=== PATIENT | female | born 1995 | race Caucasian/White ===

== ENCOUNTER 2020-07-02 13:30 | Outpatient (REF) | payer OTHER, SELFPAY ==
[2020-07-02 13:59] LABS: MANUAL DIFF FLAG NO
[2020-07-02 14:02] LABS: Basophils Absolute Auto 0.1 X10*3/uL (0.0-0.2); Basophils Percent Auto 0.7 % (0-2); Eosinophils Absolute Auto 0.1 X10*3/uL (0.0-0.4); Eosinophils Percent Auto 0.8 % (0-4); Hematocrit 38.6 % (37-47); Hemoglobin 12.6 g/dl (12.0-16.0); Imm Gran Abs Auto 0.02 X10*3/uL (0.00-0.03); Imm Gran Pct Auto 0.2 % (0.0-0.4); Lymphocytes Absolute Auto 4.7 X10*3/uL (1.2-4.9); Lymphocytes Percent Auto 48.4 % (20-40); Mean Corpuscular HGB Conc 32.6 g/dl (31.0-35.0); Mean Corpuscular Hemoglobin 25.4 pg (27.0-33.0); Mean Corpuscular Volume 77.7 fL (80-98); Mean Platelet Volume 9.9 fL (9.4-12.3); Monocytes Absolute Auto 0.6 X10*3/uL (0.1-1.2); Monocytes Percent Auto 6.1 % (2-11); Neutrophils Absolute Auto 4.3 X10*3/uL (2.0-8.3); Neutrophils Percent Auto 43.8 % (45-73); Platelet Count 401 X10*3/uL (160-400); Red Blood Count 4.97 X10*6/uL (4.20-5.50); Red Cell Distribution Width 13.1 % (11.0-16.0); White Blood Count 9.7 X10*3/uL (4.8-10.8)
[2020-07-02 14:33] LABS: Alanine Aminotransferase 17 U/L (0-31); Albumin Level 4.3 g/dL (3.5-5.0); Alkaline Phosphatase 64 U/L (39-117); Anion Gap 12 (12-20); Aspartate Amino Transferase 13 U/L (5-31); Bilirubin Total 0.5 mg/dL (0.0-1.0); Blood Urea Nitrogen 11 mg/dL (9-16); Calcium 9.2 mg/dL (8.4-10.2); Carbon Dioxide 26 mmol/L (22-29); Chloride 107 mmol/L (96-108); Cholesterol 136 mg/dL; Estimated Glomerular Filt Rate > 60; Glucose Fasting 96 mg/dL (60-99); HDL Cholesterol 36 mg/dL; LDL Cholesterol Calculated 82 mg/dl; Potassium 3.8 mmol/L (3.3-5.1); Sodium 141 mmol/L (135-145); Total Protein 7.5 g/dL (6.5-8.0); Triglycerides 91 mg/dL
[2020-07-02 14:57] LABS: TSH reflex Free T4 3.96 uIU/mL (0.32-4.0)
== END 2020-07-02 13:31 | disposition home or self-care (01) ==
LOC: HO.HMGCLDS 13:30
PROVIDERS: PCP Internal Medicine; Visit Provider Internal Medicine
DX: Z00.01 Encounter for general adult medical examination with abnormal findings (principal)
CPT/HCPCS: 36415; 80053; 80061; 82306; 84443; 85025

== ENCOUNTER 2021-06-04 13:00 | Outpatient (RCR) | payer OTHER, SELFPAY ==
--- NOTE | 2021-04-21 07:20 | MHC.PT.EP ---
[facility] [place] Office [place] Office [place] Office [address] Jeremiah Jerez [address] [phone] F: [phone] F: [phone] F: [phone] F: [phone] Physical Therapy Plan of Care Date of Evaluation: Date of Surgery: n/a Diagnosis: low back pain Assessment: Patient is a 26 year old R handed female who presents with s/s consistent with low back pain. She started working for [employer] about 3 months ago near the beginning of symptomatic onset. She notes she lifts and moves boxes frequently of the course of her day. Patient past medical history includes history of low back pain. Current impairments include pain, ROM, flexibility, strength, activity tolerance and functional mobility. Functional limitations include decreased ability to squat, lift, carry, transfer, negotiate stairs, and perform weight bearing activities.. Patient is motivated with good rehab potential. Skilled PT will address impairments and functional limitations in order to achieve goals. Frequency and Duration: The patient will be seen 1x/week for 5 weeks Short Term Goals: I with HEP - 2 weeks 90/90 lacking 20 or less b/l - 3 weeks Demo proper floor to waist list with no cues - 3 weeks Skilled Nursing Goals: Safe pain free return to work with proper modifications for body mechanics - 5 weeks Oswestry 12% or better - 5 weeks Treatment Plan: Modalities to reduce pain, spasms and effusion. Manual therapy to restore motion and function. Therapeutic exercise to improve strength and flexibility. Neuromuscular re-education for posture and balance. Therapeutic activities to return to functional activities of daily living. Electronically signed by: Arcadio Ocampo, PT Please sign and return to therapist. Thank you for your referral.
--- NOTE | 2021-09-03 07:53 | MHC.PT.DC ---
[facility] [place] Office [place] Office [place] Office [address] Jeremiah Jerez 140 [facility] [phone] F: [phone] F: [phone] F: [phone] F: [phone] Physical Therapy Discharge Report Diagnosis: low back pain Date of Surgery: n/a Date of Evaluation: 04/15/21 Date of Discharge: 06/20/21 Treatments to Date: 7 Cancellations to Date: No Shows to Date: Discharge Status: Improved Function Independent with HEP Patient Elected to Stop Discharge Summary: Pt elected to hold on PT and continue with HEP at this time. Electronically signed by: Arcadio Ocampo, PT Please sign and return to therapist. Thank you for your referral.
== END 2021-09-03 07:53 | disposition home or self-care (01) ==
LOC: HO.PTCHIC 13:00
PROVIDERS: PCP Internal Medicine; Visit Provider Internal Medicine
DX: M54.50 Low back pain, unspecified (principal)
CPT/HCPCS: 97110; 97112; 97161; 97530

== ENCOUNTER 2021-07-04 08:54 | Outpatient (REF) | payer OTHER, SELFPAY ==
[2021-07-04 12:16] LABS: Alanine Aminotransferase 13 U/L (0-31); Anion Gap 15 (12-20); Aspartate Amino Transferase 16 U/L (5-31); Blood Urea Nitrogen 13 mg/dL (9-16); Calcium 9.5 mg/dL (8.4-10.2); Carbon Dioxide 22 mmol/L (22-29); Chloride 104 mmol/L (96-108); Cholesterol 151 mg/dL; Estimated Glomerular Filt Rate > 60; Glucose Fasting 83 mg/dL (60-99); HDL Cholesterol 46 mg/dL; LDL Cholesterol Calculated 91 mg/dl; Potassium 4.5 mmol/L (3.3-5.1); Sodium 136 mmol/L (135-145); Triglycerides 73 mg/dL
[2021-07-04 12:24] LABS: Vitamin D 25-OH Total 31.7 ng/mL (>30)
== END 2021-07-04 08:55 | disposition home or self-care (01) ==
LOC: HO.HMGCLDS 08:54
PROVIDERS: Visit Provider Internal Medicine
DX: Z00.00 Encounter for general adult medical examination without abnormal findings (principal); E55.9 Vitamin D deficiency, unspecified
CPT/HCPCS: 36415; 80048; 80061; 82306; 84450; 84460

== ENCOUNTER 2022-04-22 11:00 | Outpatient (REF) | payer OTHER, SELFPAY ==
[2022-04-22 13:47] LABS: MANUAL DIFF FLAG NO
[2022-04-22 13:58] LABS: Basophils Percent Auto 0.3 % (0-2); Eosinophils Percent Auto 0.5 % (0-4); Hemoglobin 11.8 g/dl (12.0-16.0); Imm Gran Abs Auto 0.02 X10*3/uL (0.00-0.03); Imm Gran Pct Auto 0.2 % (0.0-0.4); Lymphocytes Absolute Auto 4.1 X10*3/uL (1.2-4.9); Lymphocytes Percent Auto 45.9 % (20-40); Mean Corpuscular HGB Conc 32.8 g/dl (31.0-35.0); Mean Corpuscular Hemoglobin 25.6 pg (27.0-33.0); Mean Corpuscular Volume 78.1 fL (80.0-98.0); Mean Platelet Volume 10.1 fL (9.4-12.3); Monocytes Absolute Auto 0.6 X10*3/uL (0.1-1.2); Monocytes Percent Auto 6.3 % (2-11); Neutrophils Absolute Auto 4.1 x10*3/uL (2.0-8.3); Neutrophils Percent Auto 46.8 % (45-73); Platelet Count 345 X10*3/uL (160-400); Red Blood Count 4.61 X10*6/uL (4.20-5.50); Red Cell Distribution Width 13.5 % (11.0-16.0); White Blood Count 8.9 X10*3/uL (4.8-10.8)
[2022-04-22 14:52] LABS: Alanine Aminotransferase 18 U/L (0-31); Aspartate Amino Transferase 18 U/L (5-31); Cholesterol 148 mg/dL; Glucose Fasting 74 mg/dL (60-99); HDL Cholesterol 48 mg/dL; LDL Cholesterol Calculated 90 mg/dl; Triglycerides 52 mg/dL; Vitamin D 25-OH Total 22.9 ng/mL (>30)
== END 2022-04-22 11:01 | disposition home or self-care (01) ==
LOC: HO.HMGCLDS 11:00
PROVIDERS: PCP Internal Medicine; Visit Provider Internal Medicine
DX: Z00.01 Encounter for general adult medical examination with abnormal findings (principal); E55.9 Vitamin D deficiency, unspecified; E66.9 Obesity, unspecified; F33.40 Major depressive disorder, recurrent, in remission, unspecified
CPT/HCPCS: 36415; 80061; 82306; 82947; 84450; 84460; 85025

== ENCOUNTER 2022-08-19 15:07 | Outpatient (REF) | payer OTHER, SELFPAY ==
[2022-08-19 16:58] LABS: MANUAL DIFF FLAG NO
[2022-08-19 17:17] LABS: Iron 102 mcg/dL (30-160); Percent Iron Saturation 26 % (15-50); Total Iron Binding Capacity 386 mcg/dL (228-428); Unsaturated Iron Binding 284 ug/dL
[2022-08-19 17:20] LABS: Basophils Percent Auto 0.3 % (0-2); Eosinophils Percent Auto 0.6 % (0-4); Hematocrit 41.6 % (37.0-47.0); Hemoglobin 13.6 g/dl (12.0-16.0); Imm Gran Abs Auto 0.02 X10*3/uL (0.00-0.03); Imm Gran Pct Auto 0.3 % (0.0-0.4); Lymphocytes Absolute Auto 2.6 X10*3/uL (1.2-4.9); Lymphocytes Percent Auto 35.3 % (20-40); Mean Corpuscular HGB Conc 32.7 g/dl (31.0-35.0); Mean Corpuscular Hemoglobin 26.2 pg (27.0-33.0); Monocytes Absolute Auto 0.3 X10*3/uL (0.1-1.2); Monocytes Percent Auto 4.6 % (2-11); Neutrophils Absolute Auto 4.3 x10*3/uL (2.0-8.3); Neutrophils Percent Auto 58.9 % (45-73); Platelet Count 381 X10*3/uL (160-400); Red Cell Distribution Width 13.1 % (11.0-16.0); White Blood Count 7.2 X10*3/uL (4.8-10.8)
[2022-08-19 17:32] LABS: Vitamin D 25-OH Total 59.1 ng/mL (>30)
== END 2022-08-19 15:08 | disposition home or self-care (01) ==
LOC: HO.HMGCLDS 15:07
PROVIDERS: PCP Internal Medicine; Visit Provider Internal Medicine
DX: D50.9 Iron deficiency anemia, unspecified (principal); E55.9 Vitamin D deficiency, unspecified
CPT/HCPCS: 36415; 82306; 83540; 85025

== ENCOUNTER 2022-08-27 14:23 | Outpatient (REF) | payer OTHER, SELFPAY ==
--- NOTE | ~2022-08-27 | XR_ITS ---
EXAMINATION: XR SHOULDER, LEFT CLINICAL INFORMATION: Enthesophyte the. Left shoulder pain COMPARISON: None available. TECHNIQUE: AP external rotation, Grashey, scapular Y, and axillary views of the left shoulder. FINDINGS: The bones and soft tissues are normal. No fracture. Glenohumeral and acromioclavicular alignment is anatomic with normal joint space. No abnormal soft tissue calcifications. XR/XR shoulder LT min 2V IMPRESSION: Unremarkable left shoulder.
== END 2022-08-27 14:24 | disposition home or self-care (01) ==
LOC: HO.HMGCX 14:23
PROVIDERS: PCP Internal Medicine; Visit Provider Physician Assistant Medical
DX: M77.9 Enthesopathy, unspecified (principal)
CPT/HCPCS: 73030

== ENCOUNTER 2022-11-30 08:54 | Outpatient (AMB) | payer OTHER, SELFPAY ==
--- NOTE | 2022-11-30 09:17 | MHC.OFFWIV ---
Intake Vital Signs 11/30/22 09:19 Height 5 ft 3 in BP 110/70 Blood Pressure Location Rt brachial Position Sitting Pulse 87 Pulse Source Pulse Oximeter Temp 98.0 F Temp Source Oral Pulse Oximetry (%) 98 Intake Visit Reasons: EP UTI? (reza) Intake Note: pt is here for c/o possible uti 3x days Patient Tobacco Use Status: Never used Tobacco Allergies No Known Allergies Allergy (Verified 11/30/22 09:50) Medication List - Last Reconciled 11/30/22 by Juan Harkins MD desogestrel-ethinyl estradiol 0.15-0.03 mg (Reclipsen (28)) 1 tab PO DAILY Do you need a note to return to daycare/school/sports/work: Yes HPI EP UTI? (reza) HPI Details Patient presents for a sick visit. Reports symptoms of increased frequency of urination, burning on urination and discomfort in the suprapubic area. Symptoms started in the past few days. No fevers or chills. No nausea or vomiting. PFSH Medical History Depression, major, recurrent, in remission Lumbago syndrome Microcytic hypochromic anemia Obesity (BMI 30.0-34.9) Vitamin D deficiency Surgical History No pertinent past surgical history Family History Father Asthma Brother No problems noted. Sister No problems noted. Sister No problems noted. Mother No problems noted. Other Mental health disorder Substance use disorder Social History Housing: House Alcohol intake: never Patient Tobacco Use Status: Never used Tobacco e-Cigarette/Vaping Use: Never Used Second Hand Smoke Exposure: No Current occupational status: employed Cognitive needs: No Hearing needs: No Vision needs: Yes Physical Exam Vital Signs: Last Vital Signs Temp 98.0 F 11/30/22 09:19 Pulse 87 11/30/22 09:19 BP 110/70 11/30/22 09:19 Pulse Ox 98 11/30/22 09:19 Const General: cooperative and healthy appearing Nutritional Appearance: well nourished Orientation/consciousness: patient oriented x3 Limitations: no limitations HEENT Head: Yes normal to inspection Eyes General: appearance normal, both eyes and all related structures Neck Neck: Yes normal visual inspection Chest Chest palpation & inspection: normal palpation of entire chest wall Resp Effort & Inspection: normal respiratory effort General: Yes bladder normal to palpation and Yes no CVA tenderness Bimanual exam- vagina & uterus: bladder normal to palpation Back/Spine/Pelvis Back: no CVA tenderness Neuro General: patient oriented x3 Results AMB Urinalysis, Automated UA Leukoctes 500 Wesley/uL Last Edit by Sohail Scruggs CMA on 11/30/22 09:28 UA Nitrite Negative Last Edit by Sohail Scruggs CMA on 11/30/22 09:28 UA Urobilinogen 0.2 mg/dL Last Edit by Sohail Scruggs CMA on 11/30/22 09:28 UA Protein 0 mg/dL Last Edit by Sohail Scruggs CMA on 11/30/22 09:28 UA pH 6.0 Last Edit by Sohail Scruggs CMA on 11/30/22 09:28 UA Blood 200 Roberth/uL Last Edit by Sohail Scruggs CMA on 11/30/22 09:28 UA Specific [place] 1.020 Last Edit by Sohail Scruggs CMA on 11/30/22 09:28 UA Ketone Negative Last Edit by Sohail Scruggs CMA on 11/30/22 09:28 UA Bilirubin 0 mg/dL Last Edit by Sohail Scruggs CMA on 11/30/22 09:28 UA Glucose 0 mg/dL Last Edit by Sohail Scruggs CMA on 11/30/22 09:28 Results Reviewed Results Reviewed: Laboratory Last Values Urine pH (Auto) 6.0 11/30/22 09:28 Specific [place] (Auto) 1.020 11/30/22 09:28 Urine Protein (Auto) 0 mg/dL 11/30/22 09:28 Glucose (UA)(Auto) 0 mg/dL 11/30/22 09:28 Urine Ketones (Auto) Negative 11/30/22 09:28 Urine Blood (Auto) 200 Roberth/uL 11/30/22 09:28 Urine Nitrite (Auto) Negative 11/30/22 09:28 Urine Bilirubin (Auto) 0 mg/dL 11/30/22 09:28 Urine Urobilinogen (Auto) 0.2 mg/dL 11/30/22 09:28 Leukocyte Esterase (Auto) 500 Wesley/uL 11/30/22 09:28 Assessment & Plan Assessment & Plan (1) Urinary tract infection: Code(s): N39.0 - Urinary tract infection, site not specified Plan: Take antibiotics and Pyridium as directed. Increase fluid intake. If symptoms of burning persist, new onset of fever or lower back pain, to follow-up at the clinic. Orders: Orders AMB Urinalysis Automated Today Z13.9 - Encounter for screening, unspecified Coding Level of Care Code Est Pt Level 3 (02826) Diagnoses Urinary tract infection N39.0
[2022-11-30 09:19] VITALS: BP 110/70; PULSE 87; TEMP 36.7; O2SAT 98
== END 2022-11-30 09:53 | disposition home or self-care (01) ==
PROVIDERS: PCP Internal Medicine; Visit Provider Internal Medicine
DX: N39.0 Urinary tract infection, site not specified (principal); Z13.9 Encounter for screening, unspecified
CPT/HCPCS: 81003; 99213

== ENCOUNTER 2022-12-11 12:42 | Outpatient (AMB) | payer OTHER, SELFPAY ==
--- NOTE | 2022-12-11 13:40 | A.OFFPC_ITS ---
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 X- ray of left shoulder showed unremarkable findings. Has been taking Tylenol and Advil which affords only temporary relief. Patient states above symptoms started after she has been lifting repetitively is several boxes at work. Pain is worse when she wears a backpack. She also has history of heavy menstrual bleeding, was placed on control pills by her coding clerk several years ago, unsure if she can stop taking it. Is due for a cervical cancer screening, last done 2018, with normal findings. [facility] Medical History (Updated 12/11/22 @ 16:09 by Ingrid Espinoza MD) Depression, major, recurrent, in remission Hx of menorrhagia Lumbago syndrome Microcytic hypochromic anemia Obesity (BMI 30.0-34.9) Vitamin D deficiency Surgical History No pertinent past surgical history Family History Father Asthma Brother No problems noted. Sister No problems noted. Sister No problems noted. Mother No problems noted. Other Mental health disorder Substance use disorder Social History Housing: House Alcohol intake: never Patient Tobacco Use Status: Never used Tobacco e-Cigarette/Vaping Use: Never Used Second Hand Smoke Exposure: No Current occupational status: unemployed Cognitive needs: No Hearing needs: No Vision needs: Yes Questionnaire Thrive Questionnaire Date Thrive assessed: 08/05/21 ALBERTO-7 AMB Questionnaire ALBERTO-7 Date ALBERTO - 7 assessed: 01/26/22 Source: Developed by Drs. Ricky Ashby, Angie Hawk, Rc Juarez and colleagues, with an educational sera from [employer]. Review of Systems Const All systems reviewed & are unremarkable except as noted in HPI and below Physical exam (Primary Care) Vital Signs: Last Vital Signs Pulse 88 12/11/22 13:47 BP 108/70 12/11/22 13:47 Pulse Ox 99 12/11/22 13:47 Oxygen Delivery Method Room Air 12/11/22 13:47 BMI result Body Mass Index 32.9 Tobacco/Smoking Status: Tobacco use Status Tobacco use date assessed 12/11/22 12/11/22 13:43 Patient Tobacco Use Status Never used Tobacco 12/11/22 13:42 e-Cigarette/Vaping Use Never Used 12/11/22 13:42 Thrive Assessment: Date of Thrive Assessment Date Thrive assessed 08/05/21 12/11/22 13:42 Const Other: Alert oriented x3, no acute distress noted ambulatory normal gait Nutritional Appearance: obese Neck Neck: Yes full ROM, Yes no lymphadenopathy and Yes supple Cardio Rate: regular rate Rhythm: regular rhythm Heart sounds: S1 normal heart sound present and S2 normal heart sound present Back/Spine/Pelvis Other: Tenderness on palpation over posterior aspect of left shoulder over upper border of left scapula, no gross bone deformity or lesion seen Skin General skin exam: no rashes or lesions noted Assessment and Plan Assessment & Plan (1) Shoulder pain, left: Code(s): M25.512 - Pain in left shoulder Plan: Referred to physical therapy for further evaluation management, advised to try massaging diclofenac gel or Aleve cream to affected joint, may try applying Salonpas patch to affected area, but do not use it when using leave or diclofenac (2) Hx of menorrhagia: Code(s): Z87.42 - Personal history of other diseases of the female genital tract Plan: Referred to OBGYN for further evaluation management and for her cervical cancer screening. 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
[2022-12-11 13:47] VITALS: BP 108/70; PULSE 88; O2SAT 99; BMI 32.9
== END 2022-12-11 15:16 | disposition home or self-care (01) ==
PROVIDERS: PCP Internal Medicine; Visit Provider Internal Medicine
DX: M25.512 Pain in left shoulder (principal); Z87.42 Personal history of other diseases of the female genital tract
CPT/HCPCS: 99213

== ENCOUNTER 2022-12-14 09:27 | Outpatient (AMB) | payer OTHER, SELFPAY ==
--- NOTE | 2022-12-14 10:00 | AM.OFFWIN_ITS ---
Intake Vital Signs 12/14/22 10:05 BP 106/70 Blood Pressure Location Rt brachial Position Sitting Pulse 74 Pulse Source Pulse Oximeter Temp 98.6 F Temp Source Temporal Artery Scan Pulse Oximetry (%) 97 Oxygen Delivery Method Room Air Intake Visit Reasons: issues with UTI --seen 11/30 (reza) Intake Note: Patient here for UTI, pt states she was here a few weeks ago and was given a antibiotic and she states it never really went away. Patient Tobacco Use Status: Never used Tobacco Allergies No Known Allergies Allergy (Verified 12/14/22 10:14) Medication List - Last Reconciled 12/14/22 by Juan Harkins MD desogestrel-ethinyl estradiol 0.15-0.03 mg (Reclipsen (28)) 1 tab PO DAILY Do you need a note to return to daycare/school/sports/work: No HPI issues with UTI --seen 11/30 (reza) HPI Details 27-year-old female presents to the office for a sick visit. She was seen for urinary tract infection in the office 2 weeks ago. She feels the antibiotics did not do the trick. She has episodes of stinging in the pelvic area at times. Not related to urination. No vaginal discharge. She was seen by her primary care last week for dysfunctional uterine bleeding and shoulder pain. Patient has an upcoming appointment with the timber harvester operator. [facility] Medical History (Updated 12/11/22 @ 16:09 by Ingrid Espinoza MD) Depression, major, recurrent, in remission Hx of menorrhagia Lumbago syndrome Microcytic hypochromic anemia Obesity (BMI 30.0-34.9) Vitamin D deficiency Surgical History No pertinent past surgical history Family History Father Asthma Brother No problems noted. Sister No problems noted. Sister No problems noted. Mother No problems noted. Other Mental health disorder Substance use disorder Social History Housing: House Alcohol intake: never Patient Tobacco Use Status: Never used Tobacco e-Cigarette/Vaping Use: Never Used Second Hand Smoke Exposure: No Current occupational status: unemployed Cognitive needs: No Hearing needs: No Vision needs: Yes Physical Exam Vital Signs: Last Vital Signs Temp 98.6 F 12/14/22 10:05 Pulse 74 12/14/22 10:05 BP 106/70 12/14/22 10:05 Pulse Ox 97 12/14/22 10:05 Oxygen Delivery Method Room Air 12/14/22 10:05 Const General: cooperative and healthy appearing Nutritional Appearance: well nourished Orientation/consciousness: patient oriented x3 Limitations: no limitations HEENT Head: Yes normal to inspection Eyes General: appearance normal, both eyes and all related structures Neck Neck: Yes normal visual inspection Chest Chest palpation & inspection: normal palpation of entire chest wall Resp Effort & Inspection: normal respiratory effort General: Yes no CVA tenderness Back/Spine/Pelvis Back: no CVA tenderness Neuro General: patient oriented x3 Results AMB Urinalysis, Automated UA Leukoctes 70 Wesley/uL Last Edit by BethanyEssence Bhatt [facility] on 12/14/22 10:1 5 UA Nitrite Negative Last Edit by BethanyEssence Bhatt [facility] on 12/14/22 10:15 UA Urobilinogen 0.2 mg/dL Last Edit by [facility] on 12/14/22 10:15 UA Protein 0.2 mg/dL Last Edit by [facility] on 12/14/22 10:15 UA pH 6.0 Last Edit by [facility] on 12/14/22 10:15 UA Blood 10 Roberth/uL Last Edit by [facility] on 12/14/22 10:15 UA Specific [place] 1.020 Last Edit by [facility] on 12/14/22 10:15 UA Ketone Negative Last Edit by [facility] on 12/14/22 10:15 UA Bilirubin 0 mg/dL Last Edit by [facility] on 12/14/22 10:15 UA Glucose 0 mg/dL Last Edit by [facility] on 12/14/22 10:15 Assessment & Plan Assessment & Plan (1) Urinary tract infection: Code(s): N39.0 - Urinary tract infection, site not specified Plan: Urinalysis reviewed with patient. Trace leuk and trace blood. Another round of antibiotics. I do not believe or symptoms are related to the UTI. Patient is been advised to follow-up with the office clerk assistant. Orders: Orders AMB Urinalysis Automated Today Z13.9 - Encounter for screening, unspecified Coding Level of Care Code Est Pt Level 3 (38628) Diagnoses Urinary tract infection N39.0
[2022-12-14 10:05] VITALS: BP 106/70; PULSE 74; TEMP 37; O2SAT 97
== END 2022-12-14 10:14 | disposition home or self-care (01) ==
PROVIDERS: PCP Internal Medicine; Visit Provider Internal Medicine
DX: N39.0 Urinary tract infection, site not specified (principal); Z13.9 Encounter for screening, unspecified
CPT/HCPCS: 81003; 99213

== ENCOUNTER 2022-12-23 08:29 | Outpatient (AMB) | payer OTHER, SELFPAY ==
--- NOTE | 2022-12-23 08:54 | A.OFFPC_ITS ---
Vital Signs 12/23/22 08:57 Height 5 ft 3 in Weight 194 lb BMI 34.4 BP 110/86 Blood Pressure Location Rt brachial Position Sitting Pulse 82 Pulse Source Pulse Oximeter Pulse Oximetry (%) 100 Oxygen Delivery Method Room Air Intake Visit Reasons: Urinary tract infection Intake Note: Pt is here today for re-current UTI's: Pt unable to obtain urine Allergies No Known Allergies Allergy (Verified 12/23/22 10:17) Medication List - Last Reconciled 12/23/22 by Ingrid Espinoza MD desogestrel-ethinyl estradiol 0.15-0.03 mg (Antoinetteen (28)) 1 tab PO DAILY Tobacco use date assessed: 12/23/22 Dental Screening Dental Screen Date: 12/23/22 Did you have a dental visit in the last 12 months?: No Was dental information given to patient?: Patient has dentist HPI Urinary tract infection HPI Details 27-year-old lady here today complaining of recurrent cramping pain lasting several seconds, on lower abdominal area. Patient denies any diarrhea constipation, no bloating, does not notice it getting worse just prior to her.. This was not accompanied by any dysuria, no urinary frequency or urgency. She has been treated for current urinary tract infections and antibiotics which does not seem to be helping her above symptoms. Her last Pap smear came back within normal limits last 2018, has an appointment to see cd reactor operator head for routine Pap and pelvic exam later this year. [facility] Medical History Depression, major, recurrent, in remission Hx of menorrhagia Lower abdominal pain of unknown etiology Lumbago syndrome Microcytic hypochromic anemia Obesity (BMI 30.0-34.9) Vitamin D deficiency Surgical History No pertinent past surgical history Family History Father Asthma Brother No problems noted. Sister No problems noted. Sister No problems noted. Mother No problems noted. Other Mental health disorder Substance use disorder Social History Housing: House Alcohol intake: never Patient Tobacco Use Status: Never used Tobacco e-Cigarette/Vaping Use: Never Used Second Hand Smoke Exposure: No Current occupational status: unemployed Cognitive needs: No Hearing needs: No Vision needs: Yes Questionnaire Thrive Questionnaire Date Thrive assessed: 08/05/21 ALBERTO-7 AMB Questionnaire ALBERTO-7 Date ALBERTO - 7 assessed: 01/26/22 Source: Developed by Drs. Ricky Ashby, Angie Hawk, Rc Juarez and colleagues, with an educational sera from [employer]. Review of Systems Const All systems reviewed & are unremarkable except as noted in HPI and below Physical exam (Primary Care) Vital Signs: Last Vital Signs Pulse 82 12/23/22 08:57 BP 110/86 12/23/22 08:57 Pulse Ox 100 12/23/22 08:57 Oxygen Delivery Method Room Air 12/23/22 08:57 BMI result Body Mass Index 34.4 Tobacco/Smoking Status: Tobacco use Status Tobacco use date assessed 12/23/22 12/23/22 09:00 Patient Tobacco Use Status Never used Tobacco 12/23/22 09:00 e-Cigarette/Vaping Use Never Used 12/23/22 09:00 Thrive Assessment: Date of Thrive Assessment Date Thrive assessed 08/05/21 12/23/22 09:00 Const Other: Alert oriented x3, no acute distress noted ambulatory normal gait, obese HENMT Mouth: Normal oral and palatal mucosa present, tongue normal, oropharynx normal and moist mucous membranes Neck Other: Thyroid nonpalpable Neck: Yes full ROM, Yes no lymphadenopathy and Yes supple GI Inspection: Yes obesity Palpation (GI): Soft to palpation, nontender, no guarding and no masses Auscultation: normal bowel sounds General: Yes no CVA tenderness Back/Spine/Pelvis Back: no CVA tenderness Skin General skin exam: no rashes or lesions noted Assessment and Plan Assessment & Plan (1) Lower abdominal pain of unknown etiology: Code(s): R10.30 - Lower abdominal pain, unspecified Plan: Ordered pelvic ultrasound (2) Microscopic hematuria: Code(s): R31.29 - Other microscopic hematuria Plan: Ordered pelvic ultrasound Orders: Orders US pelvic complete Today R10.30 - Lower abdominal pain, unspecified, R31.29 - Other microscopic hematuria Coding Level of Care Code Est Pt Level 3 (49002) Diagnoses Lower abdominal pain of unknown etiology R10.30 Microscopic hematuria R31.29
[2022-12-23 08:57] VITALS: BP 110/86; PULSE 82; O2SAT 100; BMI 34.4
== END 2022-12-23 11:12 | disposition home or self-care (01) ==
PROVIDERS: PCP Internal Medicine; Visit Provider Internal Medicine
DX: R10.30 Lower abdominal pain, unspecified (principal); R31.29 Other microscopic hematuria
CPT/HCPCS: 99213

== ENCOUNTER 2023-01-21 14:09 | Outpatient (AMB) | payer OTHER, SELFPAY ==
--- NOTE | 2023-01-21 14:58 | AM.OFFVISNUR ---
Intake Intake Visit Reasons: Tet Intake Note: Pt arrived for Tdap vaccine Allergies No Known Allergies Allergy (Verified 12/23/22 10:17) Immunizations Boostrix Tdap 2.5 Lf unit-8 mcg-5 Lf/0.5 mL intramuscular syringe Performing Provider: Ingrid Espinoza MD Performing Location: [facility] Administered by: Roma Martinez RN on 01/21/23 14:58 Dose Route Admin Location Dispensed Lot Number Expiration Date NDC Handstitching Machine Collar Feller 0.5 mL IM Right Deltoid 0.5 mL [id number] 04/23/25 [id number] [employer] VIS Given Date VIS Provided VIS Publication Date 01/21/23 Single Vaccine 20 Eligibility Eligibility Date Funding Source Not [facility] Eligible 01/21/23 Private Coding Assessment & Plan Assessment & Plan Orders: Orders TDaP Immunization Today Z23 - Encounter for immunization
== END 2023-01-21 16:43 | disposition home or self-care (01) ==
LOC: HO.HMGC 14:09
PROVIDERS: PCP Internal Medicine; Visit Provider Internal Medicine
DX: Z23 Encounter for immunization (principal)
CPT/HCPCS: 90471; 90715

== ENCOUNTER 2023-02-02 15:00 | Outpatient (RCR) | payer OTHER, SELFPAY ==
--- NOTE | 2023-01-06 13:40 | MHC.PT.EP ---
[facility] [place] Office [place] Office [place] Office [address] Jeremiah Jerez [address] [phone] F: [phone] F: [phone] F: [phone] F: [phone] Physical Therapy Plan of Care Date of Evaluation: Date of Surgery: n/a Diagnosis: pain in L shoulder Assessment: Patient is a 27 year old female presenting to PT with complaints of pain in her R shoulder. Pt reports onset of pain began August 2022 due to lifting at work. She presents today with impairments in pain, posture, tenderness to palpation. Pt's current occupation is none, with baseline physical activities including lifting, sleeping, wearing backpack. 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 Clinical presentation today is most consistent with signs and sx associated with R shoulder pain and pt will benefit from skilled PT 2 week x 4 weeks to address the following problems and impairments noted upon evaluation: pain, posture, tenderness to palpation. These problems limit the patient with the following functional activities: lifting, sleeping, wearing backpack. The prescribed treatment plan of care is medically necessary. Co-morbidities of none were identified and taken into considerations of plan of care. Pt was educated on HEP, role of PT, prognosis, POC. Frequency and Duration: The patient will be seen 2 x week x 4 weeks Short Term Goals: Pt will demonstrate improved pain as evidence by pain <2 days a week. Pt will demonstrate improved postural awareness by sitting with biomechanically correct posture without cues throughout session to improve overall postural function in 2 weeks. Long-Term Goals: Pt will demonstrate improved SPADI score by 13 points in 4 weeks for improved functional mobility. Pt will demonstrate ability to sleep with min to no pain in 4 weeks for return to PLOF. Pt will demonstrate ability to lift with min to no pain in 4 weeks for improved tolerance to ADLs and household duties. Treatment Plan: Modalities to reduce pain, spasms and effusion. Manual therapy to restore motion and function. Therapeutic exercise to improve strength and flexibility. Neuromuscular re-education for posture and balance. Therapeutic activities to return to functional activities of daily living. Electronically signed by: Emma Orozco, PT, DPT, ATC Please sign and return to therapist. Thank you for your referral.
--- NOTE | 2023-02-03 14:29 | MHC.PT.DC ---
[facility] [place] Office [place] [facility] [place] Office [address] Jeremiah Jerez [address] [phone] F: [phone] F: [phone] F: [phone] F: [phone] Physical Therapy Discharge Report Diagnosis: pain in L shoulder Date of Surgery: n/a Date of Evaluation: 01/06/23 Date of Discharge: 02/03/23 Treatments to Date: 8 Cancellations to Date: 0 No Shows to Date: 0 Discharge Status: Recommend MD Follow-up Discharge Summary: Pt saw BULLET ASSEMBLY PRESS OPERATOR for last scheduled visit. At that time reporting not feeling much gain from PT. Recommended at prior visits to follow up with referring provider. Electronically signed by: Emma Orozco, PT, DPT, ATC Please sign and return to therapist. Thank you for your referral.
== END 2023-02-03 14:29 | disposition home or self-care (01) ==
LOC: HO.PTCHIC 15:00
PROVIDERS: PCP Internal Medicine; Visit Provider Internal Medicine
DX: M25.512 Pain in left shoulder (principal)
CPT/HCPCS: 97110; 97161

== ENCOUNTER 2023-02-04 15:48 | Outpatient (AMB) | payer OTHER, SELFPAY ==
[2023-02-04 15:53] VITALS: BP 118/90; PULSE 80; O2SAT 99; BMI 34.2
--- NOTE | 2023-02-04 15:53 | MHC.PC.OV ---
Vital Signs 02/04/23 15:53 Height 5 ft 3 in Weight 193 lb BMI 34.2 BP 118/90 H Blood Pressure Location Lt brachial Position Sitting Pulse 80 Pulse Source Pulse Oximeter Pulse Oximetry (%) 99 Oxygen Delivery Method Room Air Intake Visit Reasons: WC Left Shoulder Inj fu Intake Note: patient is here today for her f/u on left shoulder inj:WC: date of injury 08/27/22 Allergies No Known Allergies Allergy (Verified 02/04/23 16:12) Medication List - Last Reconciled 02/04/23 by Ingrid Espinoza MD desogestrel-ethinyl estradiol 0.15-0.03 mg (Reclipsen (28)) 1 tab PO DAILY Tobacco use date assessed: 02/04/23 Dental Screening Dental Screen Date: 02/04/23 Did you have a dental visit in the last 12 months?: No Did you have a dental problem in the last 6 months where you did not have access to dental care?: No Was dental information given to patient?: Patient has dentist HPI WC Left Shoulder Inj fu HPI Details 27-year-old lady here today for follow-up regarding left shoulder injury. This has been present now for since August 2022, sustained at work lifting a lot of heavy boxes. Patient has been going to physical therapy, discharged recently due to no further gains seen with physical therapy. Patient already quit her job at [employer], now constant stating on going back to school again. He has been resting her arm and shoulder joints, and has not had any recurrence of pain. [facility] Medical History Lower abdominal pain of unknown etiology Hx of menorrhagia Microcytic hypochromic anemia Depression, major, recurrent, in remission Obesity (BMI 30.0-34.9) Vitamin D deficiency Lumbago syndrome Surgical History No pertinent past surgical history Family History Father Asthma Brother No problems noted. Sister No problems noted. Sister No problems noted. Mother No problems noted. Other Mental health disorder Substance use disorder Social History Housing: House Alcohol intake: never Patient Tobacco Use Status: Never used Tobacco e-Cigarette/Vaping Use: Never Used Second Hand Smoke Exposure: No Current occupational status: unemployed Cognitive needs: No Hearing needs: No Vision needs: Yes Questionnaire PHQ-9 Over the last 2 weeks, how often have you been bothered by any of the following problems? 1. Little interest or pleasure in doing things: not at all 2. Feeling down, depressed, or hopeless: not at all 3. Trouble falling or staying asleep, or sleeping too much: several days 4. Feeling tired or having little energy: several days 5. Poor appetite or overeating: not at all 6. Feeling bad about yourself - or that you are a failure or have let yourself or your family down: not at all 7. Trouble concentrating on things, such as reading the newspaper or watching television: not at all 8. Moving or speaking so slowly that other people could have noticed. Or the opposite - being so fidgety or restless that you have been moving around a lot more than usual: not at all 9. Thoughts that you would be better off or of hurting yourself in some way: not at all Total score: 2 Depression Screening Interpretation: Negative 61612 - PHQ-9 Billing: Yes Source: Developed by Drs. Ricky Ashby, Angie Hawk, Rc Juarez and colleagues, with an educational sera from [employer]. Thrive Questionnaire Date Thrive assessed: 02/04/23 I am a: Patient What is your living situation today?: I have a steady place to live Within the past 12 months, did the food you bought not last and you didn't have the money to get more?: Never true Within the past 12 months, did you worry whether your food would run out before you got money to buy more?: Never true Do you have trouble paying for medicines?: No Do you have trouble getting transportation to medical appointments?: No Do you have trouble paying your heating and electricity bill?: No Do you have trouble taking care of your child, family member or friend?: No Do you have trouble with day-to-day activities such as bathing, preparing meals, shopping, managing finances, etc.?: No Are you currently unemployed and looking for a job?: No Are you interested in more education?: No Please select the resources that you would like help with: None AUDIT C Alcohol Use Questionnaire (AUDIT-C) 1. How often do you have a drink containing alcohol?: Never Total Score: 0 ALBERTO-7 AMB Questionnaire ALBERTO-7 Date ALBERTO - 7 assessed: 01/26/22 Feeling nervous, anxious, or on edge: 1 = Several days Not being able to stop or control worryin = Several days Worrying too much about different things: 1 = Several days Trouble relaxin = Not at all Being so restless that it is hard to sit still: 1 = Several days Becoming easily annoyed or irritable: 0 = Not at all Feeling afraid as if something awful might happen: 0 = Not at all Total ALBERTO-7 score (0-4 normal; 5-9 mild; 10-14 moderate; 15-21 severe): 4 Source: Developed by Drs. Ricky Ashby, Angie Hawk, Rc Juarez and colleagues, with an educational sera from [employer]. ALBERTO-7 Assessment Billing ALBERTO-7 Assessment Tool: ALBERTO-7 Assessment 50078 Review of Systems Const All systems reviewed & are unremarkable except as noted in HPI and below Physical exam (Primary Care) Vital Signs: Last Vital Signs Pulse 80 02/04/23 15:53 BP 118/90 H 02/04/23 15:53 Pulse Ox 99 02/04/23 15:53 Oxygen Delivery Method Room Air 02/04/23 15:53 BMI result Body Mass Index 34.2 Tobacco/Smoking Status: Tobacco use Status Tobacco use date assessed 02/04/23 02/04/23 16:00 Patient Tobacco Use Status Never used Tobacco 02/04/23 16:00 e-Cigarette/Vaping Use Never Used 02/04/23 16:00 PHQ-9: PHQ-9 Score PHQ-9: Total score 2 02/04/23 16:23 Depression Screening Interpretation: Negative Thrive Assessment: Date of Thrive Assessment Date Thrive assessed 02/04/23 02/04/23 16:23 Const Other: Alert oriented x3, no acute distress noted ambulatory normal gait, obese HENMT Mouth: Normal oral and palatal mucosa present and moist mucous membranes Neck Other: Thyroid nonpalpable Neck: Yes full ROM, Yes no lymphadenopathy and Yes supple Resp Auscultation: clear to auscultation bilaterally Cardio Other: S1-S2 present regular rate and rhythm General: Yes no CVA tenderness Back/Spine/Pelvis Back: no CVA tenderness Skin General skin exam: no rashes or lesions noted Extrem Other: Full range of motion now in left shoulder joint, negative impingement sign, able to make a fist with left hand Assessment and Plan Assessment & Plan (1) Left shoulder strain: Code(s): S46.912A - Strain of unspecified muscle, fascia and tendon at shoulder and upper arm level, left arm, initial encounter Qualifiers: Encounter type: subsequent encounter Qualified Code(s): S46.912D - Strain of unspecified muscle, fascia and tendon at shoulder and upper arm level, left arm, subsequent encounter Plan: Improving now that she has been able to rest her shoulder for the last several weeks., has already reached maximum improvement with physical therapy. Advised to continue doing [id number] exercises with both shoulders, return to the clinic if worsening of symptoms noted. Coding Level of Care Code Est Pt Level 3 (26681) Diagnoses Strain of left shoulder, subsequent encounter S46.912D Encounter type: subsequent encounter Additional Codes ALBERTO-7 Assessment Billing - ALBERTO-7 Assessment Tool: ALBERTO-7 Assessment 18687 ([id number])
== END 2023-02-04 16:21 | disposition home or self-care (01) ==
PROVIDERS: PCP Internal Medicine; Visit Provider Internal Medicine
DX: S46.912D Strain of unspecified muscle, fascia and tendon at shoulder and upper arm level, left arm, subsequent encounter (principal)
CPT/HCPCS: 99213

== ENCOUNTER 2025-05-16 09:27 | Emergency (ER) | payer OTHER, SELFPAY ==
[2025-05-16 09:31] VITALS: BP 122/58; PULSE 117; RESP 18; TEMP 39.2; O2SAT 98; BMI 28.3
[2025-05-16 10:30] LABS: Resp Syncy Virus RNA Qual PCR NEGATIVE (Negative); SARS COV2 PCR INHOUSE NEGATIVE (Negative)
--- NOTE | 2025-05-16 10:38 | ED.URI ---
HPI - URI/Sore Throat General Chief Complaint: Upper Respiratory Symptoms Stated Complaint: flu like symptoms since wednesday. Time Seen by Provider: 05/16/25 10:37 Source: patient, RN notes reviewed and old records reviewed Mode of arrival: ambulatory History of Present Illness ED Provider: Juana Bustos PA-C HPI Narrative: 30-year-old female with a past medical history anemia, vitamin-D deficiency, presenting to the ED complaining of flu-like symptoms with fever, myalgias, headache, neck pain, rhinorrhea, dry cough x2 days. States girlfriend positive for the flu. Denies CP/SOB. Related Data Previous Rx's ?Medication ?Instructions ?Recorded desogestrel 0.15 mg-ethinyl 1 tab PO DAILY #84 tabs 10/20/22 estradiol 0.03 mg tablet (Reclipsen (28)) oseltamivir 75 mg capsule (Tamiflu) 75 mg PO Q12H 5 days #10 caps 05/16/25 Allergies Allergy/AdvReac Type Severity Reaction Status Date / Time No Known Allergies Allergy Verified 05/16/25 09:32 Review of Systems Review of Systems: Yes all other systems are reviewed and are negative Constitutional: Constitutional: Reports as per [facility] Past Medical History Attestation statement: The following information was validated with the patient. Source: old records reviewed Medical History Lower abdominal pain of unknown etiology Hx of menorrhagia Microcytic hypochromic anemia Depression, major, recurrent, in remission Obesity (BMI 30.0-34.9) Vitamin D deficiency Lumbago syndrome Surgical History No pertinent past surgical history Family History Family History Father Asthma Brother No problems noted. Sister No problems noted. Sister No problems noted. Mother No problems noted. Other Mental health disorder Substance use disorder Social History Social History Housing: House Alcohol intake: never Patient Tobacco Use Status: Never used Tobacco e-Cigarette/Vaping Use: Never Used Second Hand Smoke Exposure: No Advance Directives: No Advance Directives Information Provided: Yes Current occupational status: unemployed Cognitive needs: No Hearing needs: No Vision needs: Yes Physical Exam Vital Signs: Vital Signs: Last Vital Signs Temp 100.4 F 05/16/25 11:05 Pulse 97 05/16/25 11:05 Resp 16 05/16/25 11:05 BP 116/74 05/16/25 11:05 Pulse Ox 97 05/16/25 11:05 O2 Del Method Room Air 05/16/25 11:05 BMI result Body Mass Index 28.3 Const: General: cooperative, healthy appearing and no acute distress Orientation/consciousness: patient oriented x3 Limitations: no limitations HEENT: Head: Yes normal to inspection and Yes atraumatic Ears: hearing grossly normal bilaterally General nose exam: Normal external nose present Face and sinus: Yes normal facial exam Mouth: Normal oral and palatal mucosa present Throat: Yes posterior oropharynx normal, Yes tonsils normal, Yes uvula midline, No peritonsillar mass, No uvula laterally displaced and No uvular edema Eyes: General: appearance normal, both eyes and all related structures EOM: EOMs intact bilaterally Neck: Neck: Yes normal visual inspection and Yes no meningeal signs Resp: Effort & Inspection: normal respiratory effort, no respiratory distress and no stridor Auscultation: clear to auscultation bilaterally, no rales, no rhonchi and no wheezes Cardio: Rate: regular rate Heart sounds: S1 normal heart sound present and S2 normal heart sound present Skin: Rashes: no rashes Wounds: no wounds Neuro: General: patient oriented x3, tone normal and no meningeal signs Cranial nerves: Yes CN's II-XII intact bilaterally Gait exam (Neuro): Normal gait present Extrem: General: Yes normal to inspection Course Course Course Narrative: -Influenza a positive > vital signs improved after p.o. Tylenol. Patient interested in Tamiflu Results discussed with patient including worrisome signs and symptoms and strict return precautions, and when to return to the emergency department. They verbalized understanding and feel safe for discharge at this time. Medications Administered Discontinued Medications Generic Name Dose Route Start Last Admin Trade Name Freq PRN Reason Stop Dose Admin Acetaminophen 975 mg 05/16/25 09:34 05/16/25 09:37 Acetaminophen 325 Mg Tablet PO 05/16/25 09:35 975 mg ONCE ONE Administration Medical Decision Making Medical Decision Making [facility] Narrative: 30-year-old female with a past medical history anemia, vitamin-D deficiency, presenting to the ED complaining of flu-like symptoms with fever, myalgias, headache, neck pain, rhinorrhea, dry cough x2 days. On exam febrile to 102.6, tachycardic likely from fever, NAD/nontoxic appearing, physical exam as noted above. Concern for viral illness. Lower suspicion for strep pharyngitis, WATERMELON INSPECTOR/retropharyngeal abscess or pneumonia Plan: Viral testing, antipyretic Please refer to course for remaining clinical decision making, interpretation of labs/imaging results, and discussions with consultants and/or family members. Differential Diagnosis Differential Diagnoses: The differential diagnosis associated with the presentation includes As above Lab Data MDM Lab Attestation statement: I reviewed the patient's lab results. Labs: Lab Results 05/16/25 Range/Units 09:40 Influenza Type A (PCR) POSITIVE A (Negative) Influenza Type B (PCR) NEGATIVE (Negative) RSV RNA Qual (PCR) NEGATIVE (Negative) SARS-CoV-2 RNA (RT-PCR) NEGATIVE (Negative) External Record Review External record reviewed: Inpatient record, Office record, Outpatient record, Prior outpatient labs, Prior outpatient radiology, Primary care record and Outside ED record Tests considered The following testing was considered but not selected: As above Prescription Management I considered prescription management with: Pain Medication, Antiviral and Antibiotic Chronic Conditions Patient?s care impacted by: Other Social Determinants Patient?s care significantly limited by Social Determinants of Health including: Other Social Determinant of Health Discharge Plan Discharge Clinical Impression: Influenza A Patient Disposition: Home, Self-Care Instructions: Influenza (DC) Additional Instructions: You have the flu No antibiotics are indicated at this time Make sure you are staying hydrated. Drink plenty of fluids. Rest Alternate Tylenol and Motrin at home as needed for body aches and fever Follow-up with your doctor. If symptoms persist or worsen return to the emergency department *If you are a child & not tolerating liquid or urinating for more than 6 hours, or fevers are uncontrolled with medications at home, return to the emergency department* Prescriptions: New oseltamivir [Tamiflu] 75 mg capsule 75 mg PO Q12H 5 Days Qty: 10 0RF No Action desogestrel-ethinyl estradiol [Reclipsen (28)] 0.15-0.03 mg tablet 1 tab PO DAILY Qty: 84 3RF Referrals: Edyta Barron PA [Primary Care Provider, Internal Medicine] - 1 week Stand Alone Forms: Work/School Release Interventions: ED Discharge Assessment Last Done: 05/16/25 11:05 Discharge Date/Time: 05/16/25 11:06 Print Language: Iranian
[2025-05-16 10:54] VITALS: BP 116/74; PULSE 97; RESP 16; TEMP 38; O2SAT 97
[2025-05-16 11:05] VITALS: BP 116/74; PULSE 97; RESP 16; TEMP 38; O2SAT 97
--- OUTSIDE RECORDS SUMMARY | 2025-05-16 12:29 | XMS_ITS | Encounter Summary ---
Author Organization [facility] Address [address] [place] [address] Phone Care Team Providers Care Commercial Lines Manager Name Role Phone Unavailable Primary Care Provider Unavailabl e Encounter Details Date Type Department Care Team (Late st Contact Info) Description 12/31/2016 Conversion Encounter [facility] - [address] [address] Social History Tobacco Use Types Packs/Day Years Used Date Smoking Tobacco: Never Comments:Never smoker Comments Unknown Sex and Gender Information Value Date Recorded Sex Assigned at Not on file Legal Sex Female 5:01 PM EDT Gender Identity Not on file Sexual Orientation Not on file documented as of this encounter Plan of Treatment Not on file documented as of this encounter Visit Diagnoses Not on filedocumented in this encounter
--- OUTSIDE RECORDS SUMMARY | 2025-05-16 12:29 | XMS_ITS | Encounter Summary ---
Author Organization [facility] Address [address] [place] [address] [facility] [place] [address] Care Team Providers Care Shop Tech Name Role Phone Unavailable Primary Care Provider Unavailabl e Encounter Details Date Type Department Care Team (Latest Contact Info) Description 12/06/2018 Abstract [facility] CONVERSIONS Dental, Provider, DDS Social History Tobacco Use Types Packs/Day Years Used Date Smoking Tobacco: Never Assessed Comments Unknown Sex and Gender Information Value Date Recorded Sex Assigned at Female 03/16/2022 10:24 AM EDT Legal Sex Female 10:24 AM EDT Gender Identity Female 03/16/2022 10:24 AM EDT Sexual Orientation Choose not to disclose 2021 10:24 AM EDT documented as of this encounter Plan of Treatment Upcoming Encounters Date Type Department Care Team (Late st Contact Info) Description 06/08/2025 8:00 AM EST Office Visit [facility] [address] [place] [address] Rahul Belcher, DMD [address] [place] [address] documented as of this encounter Visit Diagnoses Not on filedocumented in this encounter
--- OUTSIDE RECORDS SUMMARY | 2025-05-16 12:29 | XMS_ITS | Clinical Summary ---
Author Organization [facility] Address [address] [place] [id number] Phone Care Team Providers Care Bookkeeper Assistant Name Role Phone Unavailable Primary Care Provider Unavailabl e Allergies No known active allergies Medications ferrous sulfate 325 (65 FE) MG tablet TK 1 T PO BID 3 12/31/2016 Active ISIBLOOM 0.15-30 MG-MCG per tabletIndication s:PCOS (polycystic ovarian syndrome) Take 1 tablet by mouth once daily. 84 tablet 3 03/28/2018 Active Active Problems Problem Noted Date Diagnosed Date PCOS (polycystic ovarian syndrome) 03/30/2017 Overview (03/30/2017): Saw Dr. Espitia in adol med at [facility] in fall 2016; started on OCPs in dec 2016 due to amenorrhea and menorrhagia. Had some anemia at the time as well. Immunizations Immunization Administration Dates Next Due DTP 02/07/2001, 8,1997,04/10 DTaP 5 05/24/1998 HPV, Quadrivalent 10/15/2010,04/17/2010,02/04/20 10 Hep A, ped/adol 09/26/2007,12/30/2006 Hep B, Adult 03/30/2017 Hep B, ped/adol 1997,1997,1997 Hib (PRP-T) 01/29/1999 IPV 02/07/2001, 8,1997,04/10 Influenza Split 2013,04/04/2012 Influenza, injectable, quadr ivalent, preservative free 01/21/2017,02/18/2016,02/27/2015,01/31 Influenza, injectable, trivalent 02/08/2009,07/2007,04/25/2007 MMR 02/07/2001,05/24/1998 Meningococcal Conj (Menactra) MCV4P 08/09/2014,0 02/08/2009 PPD Test 01/31/2007 Tdap 02/08/2009 Varicella 01/31/2007,03/25/1998 Family History Medical History Relation Name Comments Asthma Brother jerry Asthma Father lauren Hyperlipidemia Father lauren Obesity Mother mackenzie Asthma Sister 1 harry No Known Problems Sister 2 amanda Relation Name Status Comments Brother jerry Alive Brother: Asthma Father lauren Alive Father: Asthma, Hyperlipidemia Maternal Grandmother Materna l grandmother: Diabetes mellitus Mother mackenzie Alive Mother: Obesity Sister 1 harry Alive Sister: Asthma Sister 2 jarisel Alive Social History Tobacco Use Types Packs/Day Years Used Date Smoking Tobacco: Never Smokeless Tobacco: Never Comments:Never smoker Alcohol Use Standard Drinks/Week Comments No 0 (1 standard drink = 0.6 oz pur e alcohol) Comments No Sex and Gender Information Value Date Recorded Sex Assigned at Not on file Legal Sex Female 5:01 PM EDT Gender Identity Not on file Sexual Orientation Not on file Last Filed Vital Signs Vital Sign Reading Time Taken Comments Blood Pressure 121/78 11/19/2017 2:52 PM EDT Pulse 98 11/19/2017 2:52 PM EDT Temperature 37.1 C (98.7 F) 11/19/2017 2:52 PM EDT Respiratory Rate - - Oxygen Saturation - - Inhaled Oxygen Concentration - - Weight 77.3 kg (170 lb 8 oz) 11/19/2017 2:52 PM EDT Height 160.7 cm (5' 3.25 ) 11/19/2017 2:52 PM ED T Body Mass Index 29.96 11/19/2017 2:52 PM EDT Plan of Treatment Health Maintenance Due Date Last Done Comments DTaP,Tdap,and Td Vaccines (7 - Td or Tdap) 02/08/2019 02/08/2009, 02/07/2001, 05/24/1998, Additional history exists Influenza Vaccines (#1) 2024 01/22/20 17, 02/18/2016, 02/27/2015, Additional history exists COVID-19 Vaccine ( season) 2025 HIB Vaccines Completed 01/29/1999 IPV Vaccines Completed 02/07/2001, 01/1998, 1997, Additional history exists MMR Vaccines Completed 02/07/2001, 05/24/1998 Varicella Vaccines Completed 01/31/2007, 03/25/1998 Hepatitis A Vaccines Completed 09/26/2007, 12/31/19 07 HPV Vaccines Completed 10/15/2010, 06/2009, 02/03/2010 Meningococcal Vaccine Completed 08/09/2014, 009 Hepatitis B Vaccines Completed 03/30/2017, 1997, 1997, Additional history exists Men B Vaccine Aged Out No longer elig ible based on patient's age to complete this topic Pneumococcal Vaccine Aged Out No long er eligible based on patient's age to complete this topic Insurance [facility]
--- OUTSIDE RECORDS SUMMARY | 2025-05-16 12:29 | XMS_ITS | Encounter Summary ---
Author Organization [facility] Address [address] [place] [phone] Phone Care Team Providers Care Strategy Specialist Name Role Phone Unavailable Primary Care Provider Unavailabl e Reason for Visit * Reason Comments Med Refill Encounter Details Date Type Department Care Team (Late st Contact Info) Description 01/21/2018 Refill [facility] - [address] [address] Christa Mckenna MD PCOS (polycystic ovarian syndrome) Social History Tobacco Use Types Packs/Day Years [...] on file documented as of this encounter Miscellaneous Notes * Telephone Encounter - Bronwyn James LPN - 01/21/2018 10:53 AM EDT SL PCP was [facility]: pharm fax refill request OCP. pts last PE was in November. EH documented in this encounter Plan of Treatment Not on file documented as of this encounter Visit Diagnoses Diagnosis PCOS (polycystic ovarian syndrome) Polycystic ovaries documented in this encounter
--- OUTSIDE RECORDS SUMMARY | 2025-05-16 12:29 | XMS_ITS | Clinical Summary ---
Author Organization [employer] Address [address] [place] [address] Care Team Providers Care Shrimp Peeler Name Role Phone Unavailable Primary Care Provider Unavailabl e Allergies No known active allergies Medications No known medications Active Problems Problem Noted Date Diagnosed Date Class 1 obesity 04/18/2025 Major depression in full remission 04/18/2025 Sickle cell trait 04/18/2025 Upper respiratory infection 11/03/2023 PCOS (polycystic ovarian syndrome) 03/30/2017 Overview (04/18/2025): Saw Dr. Espitia in adol med at [facility] in fall 2016; started on OCPs in dec 2016 due to amenorrhea and menorrhagia. Had some anemia at the time as well. 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 Travel from Last 3 Months Social History Tobacco Use Types Packs/Day Years Used Date Smoking Tobacco: Never Passive Smoke Exposure: Never Smokeless Tobacco: Never Tobacco Cessation:Counseling Given: Not Answered Alcohol Use Standard Drinks/Week Comments Defer 0 (1 standard drink = 0.6 oz pur e alcohol) Comments Unknown Sex and Gender Information Value Date Recorded Sex Assigned at Female 03/16/2022 10:24 AM EDT Legal Sex Female 10:24 AM EDT Gender Identity Female 03/16/2022 10:24 AM EDT Sexual Orientation Choose not to disclose 2021 10:24 AM EDT Last Filed Vital Signs Vital Sign Reading Time Taken Comments Blood Pressure 116/72 01/13/2024 1:52 PM EDT Pulse 65 09/29/2023 3:02 PM EDT Temperature - - Respiratory Rate - - Oxygen Saturation - - Inhaled Oxygen Concentration - - Weight - - Height - - Body Mass Index - - Plan of Treatment Upcoming Encounters Date Type Department Care Team (Late st Contact Info) Description 06/08/2025 8:00 AM EST Office Visit [facility] [address] [place] [address] Rahul Belcher, DMD [address] [place] [address] Health Maintenance Due Date Last Done Comments Depression Screening 1997 HIV Screening 1997 SDOH Screening 1997 Disability Screening 1997 Alcohol/Substance Use Screening 2009 Family Planning (PISQ) 02/07/2012 Hepatitis C Screening 2015 Pap Smear 2018 Dental Oral Exam 04/01/2024 09/29/2023, , 05/19/2019, Additional history exists Dental Prophylaxis 04/01/2024 09/29/2023, 0 02/09/2023, 06/12/2019, Additional history exists COVID-19 Vaccine ( season) 2025 05/02/2021, 09/30/2020, 09/09/2020 Influenza Vaccine (#1) 2025 , 02/20/2024, 04/24/2022, Additional history exists Dental X-Ray: Full Mouth 02/10/2026 023, 05/29/2019, 10/14/2017 Tobacco Screening 04/18/2026 04/18/2025 Dental X-Ray: Bitewings 04/19/2026 04/18/20 25, 09/29/2023, 02/09/2023, Additional history exists DTaP/Tdap/Td Vaccines (8 - Td or Tdap) 01/21/2033 01/21/2023, 02/08/2009, 02/07/2001, Additional history exists Zoster Vaccines (1 of 2) 2047 RSV Patients and Patients Aged 60 years or older (1 - 1-dose 75+ series) 02/07/2072 HIB Vaccines Completed 01/29/1999 IPV Vaccines Completed 02/07/2001, 01/1998, 1997, Additional history exists Hepatitis A Vaccines Completed 09/26/2007, 12/31/19 07 HPV Vaccines Completed 10/15/2010, 05/2010, 04/17/2010, Additional history exists Meningococcal Vaccine Completed 08/09/2014, 009 Hepatitis B Vaccines Completed 03/30/2017, 1997, 1997, Additional history exists Meningococcal B Vaccine Aged Out No l onger eligible based on patient's age to complete this topic Pneumococcal Vaccine: Pediatrics (0 to 5 Years) and At-Risk Patients (6 to 49) Years Aged Out No longer eligible based on patient's age to complete this topic RSV under 20 months Aged Out No longe r eligible based on patient's age to complete this topic Rotavirus Vaccines Aged Out No longer eligible based on patient's age to complete this topic Procedures Procedure Name Priority Date/Time Associated Diagnosis Comments CASE PRESENTATION, DETAILED AND EXTENSIVE TREATMENT PLANNING Routine 04/18/2025 3:30 PM EST Reversible pulpitis INTRAORAL - PERIAPICAL FIRST RADIOGRAPHIC IMAGE Routine 04/18/2025 3:30 PM EST Reversible pulpitis BITEWING - SINGLE RADIOGRAPHIC IMAGE Routine 04/18/2025 3:30 PM EST Reversible pulpitis LIMITED ORAL EVALUATION - PROBLEM FOCUSED Routine 04/18/2025 3:30 PM EST Reversible pulpitis Full PROPHYLAXIS - ADULT Routine 024 3:00 PM EDT PERIODIC ORAL EVALUATION - ESTABLISHED PATIENT Routine 09/29/2023 3:00 PM EDT INTRAORAL - COMPLETE SERIES OF RADIOGRAPHIC IMAGES Routine 02/09/2023 9:00 AM EDT from Last 3 Months or Most Recently Relevant to Health Maintenance Insurance [facility] MEDICAID STAND ADULT
== END 2025-05-16 11:06 | disposition home or self-care (01) ==
LOC: HO.ED 10:57
PROVIDERS: Emergency Provider Emergency Medicine Emergency Medical Services; PCP Physician Assistant
DX: J10.1 Influenza due to other identified influenza virus with other respiratory manifestations (principal); R05.9 Cough, unspecified; R50.9 Fever, unspecified
CPT/HCPCS: 87637; 99283